=== PATIENT | female | born 1935 | race Caucasian/White ===

== ENCOUNTER 2018-01-09 19:46 | Emergency (ER) | payer MEDICARE ==
--- NOTE | 2018-01-09 19:50 | UC ---
Abdominal Pain Female HPI - HPI Summary HPI Summary: 82 yo female presents with upper abdominal pain. She tells me that 3 days ago she had an episode of severe upper abdominal pain and subsequent dry heaves. This lasted for about 12 hours. Did not eat the rest of the day. The next day she felt fine. Yesterday she had severe upper abdominal pain again with dry heaves all day - pain has been persisting all day today. She is able to tolerate water, but has not had anything to eat. She tells me that she has a history of pyloric stenosis that required dilation by GI about 5-6 years ago. Currently denies fever, chills, SOB, chest pain, constipation, or diarrhea. - History of Current Complaint Stated Complaint: SORE STOMACH,DRY HEAVES Time Seen by Provider: 01/09/18 19:50 Hx Obtained From: Patient Onset/Duration: Sudden Onset Severity Initially: Severe Severity Currently: Severe Pain Intensity: 7 Pain Scale Used: 0-10 Numeric Location: Epigastric Allergies/Adverse Reactions: Allergies Allergy/AdvReac Type Severity Reaction Status Date / Time ibuprofen Allergy Nausea Verified 01/09/18 20:05 tramadol Allergy Nausea Verified 01/09/18 20:05 PMH/Surg Hx/FS Hx/Imm Hx - Additional Past Medical History Additional PMH: Pyloric stenosis Endocrine History: Dyslipidemia GI/ History: Gastroesophageal Reflux - Surgical History Surgical History: Yes Surgery Procedure, Year, and Place: gallbladder removed, appendectomy, PYLORIC CHANNEL NARROWING AFTER CHOLECYSTECTOMY - Family History Known Family History: Positive: Diabetes - Social History Occupation: Retired Lives: With Family Alcohol Use: Occasionally Alcohol Amount: 3-4 times weekly Substance Use Type: None Smoking Status (MU): Never Smoked Tobacco Have You Smoked in the Last Year: No - Immunization History Most Recent Influenza Vaccination: 2014 Most Recent Tetanus Shot: unknown Most Recent Pneumonia Vaccination: never Review of Systems Constitutional: Negative Respiratory: Negative Cardiovascular: Negative Gastrointestinal: Abdominal Pain, Vomiting Genitourinary: Negative Neurovascular: Negative Neurological: Negative Psychological: Negative All Other Systems Reviewed And Are Negative: Yes Physical Exam - Summary Physical Exam Summary: GENERAL: NAD. WDWN. No pain distress. SKIN: No rashes, sores, lesions, or open wounds. NECK: Supple. Nontender. No lymphadenopathy. CHEST: CTAB. No r/r/w. No accessory muscle use. Breathing comfortably and in no distress. CV: RRR. Without m/r/g. Pulses intact. Brisk cap refill. ABDOMEN: Severe TTP over epigastric area. Soft. No distention or guarding. No CVA tenderness. Bowel sounds present NEURO: Alert. CN II-XII grossly intact. PSYCH: Age appropriate behavior. Triage Information Reviewed: Yes Vital Signs: Vital Signs: Temp Pulse Resp BP Pulse Ox 97.8 F 74 16 146/73 95 01/09/18 19:57 01/09/18 19:57 01/09/18 19:57 01/09/18 19:57 01/09/18 19:57 Vital Signs Reviewed: Yes Abd Pain Female Course/Dx - Course Course Of Treatment: Her history and exam is suspicious for recurrent stenosis or possible adhesions effecting upper GI pathway. I have advised her to go to the ER for further evaluation and likely CT scan. Pt was agreeable to this and will have her drive her. - Differential Dx/Diagnosis Provider Diagnoses: Epigastric pain. Vomiting Discharge - Sign-Out/Discharge Documenting (check all that apply): Patient Departure - Discharge Plan Condition: Stable Disposition: HOME-RECOMMEND TO ED Referrals: Roque Hoffmann MD [Primary Care Provider] - Additional Instructions: Please go to the ER for further evaluation of your abdominal pain and history of pyloric stenosis - Billing Disposition and Condition Condition: STABLE Disposition: Home-Recommend to ED
[2018-01-09 20:04] VITALS: BP 146/73
== END 2018-01-09 20:17 | disposition home health service (06) ==
LOC: UCEAST 19:46
DX: R10.13 Epigastric pain (principal); R11.10 Vomiting, unspecified; Z88.6 Allergy status to analgesic agent
CPT/HCPCS: 99212; G0463

== ENCOUNTER 2018-01-09 20:34 | Emergency (ER) | payer MEDICARE ==
[2018-01-09] MEDS ORDERED: NS 0.9% 1000 ML* 2,000 ML IV ONE (21:13)
[2018-01-09] MEDS ORDERED: Ondansetron INJ* 2 MG/ML VIAL IV ONE (21:13)
--- NOTE | 2018-01-09 21:16 | ED ---
Abdominal Pain/Female - HPI Summary HPI Summary: This is abner Ochoa documenting for attending Dr. Akhil Mills MD. The patient is an 82 y/o F presenting to [facility] from [facility] c/o epigastric abd pain sudden onset starting 01/06 and worsening last night. On 01/06, the patient had noticed an aching and soreness in her upper abd while she was just relaxing around the house, not doing out of the ordinary. The pain does not radiate to her chest or groin, but it is constant and rated 7/10 in severity. The pain relieved itself, and then returned the next night. She woke up yesterday without pain, but then the pain worsened last night at 22:30 and was accompanied by dry heaving. She woke up this morning without pain, but then the pain started again at 12:00 with more wretching. She was able to eat dinner yesterday, which did not worsen the pain, but she only drank water and elidia viola today without solid foods. Her flatulence has been normal. She denies diarrhea, dysuria, and hematuria. She has had a similar pain approximately 6 years ago when she had cholecystecomy complications after a surgery by Dr. Orlando. She also had an appendectomy when she was younger. She has hx of GERD. - History of Current Complaint Chief Complaint: EDAbdPain Stated Complaint: ABD PAIN Time Seen by Provider: 01/09/18 21:05 Hx Obtained From: Patient Hx Last Menstrual Period: post menopause ?: No Onset/Duration: Sudden Onset, Lasting Days - three days, Still Present, Worse Since - last night Timing: Constant Severity Initially: Mild Severity Currently: Moderate Pain Intensity: 7 Pain Scale Used: 0-10 Numeric Location: Epigastric Radiates: No Character: Other: - soreness, aching Aggravating Factor(s): Nothing Alleviating Factor(s): Nothing Associated Signs and Symptoms: Positive: Other: - POSITIVE: dry heaving; NEGATIVE: diarrhea, dysuria, hematuria Allergies/Adverse Reactions: Allergies Allergy/AdvReac Type Severity Reaction Status Date / Time ibuprofen Allergy Nausea Verified 01/09/18 20:40 tramadol Allergy Nausea Verified 01/09/18 20:40 PMH/Surg Hx/FS Hx/Imm Hx Endocrine/Hematology History: Denies: Hx Diabetes, Hx Thyroid Disease Cardiovascular History: Reports: Hx Hypercholesterolemia Denies: Hx Congestive Heart Failure, Hx Hypertension Respiratory History: Denies: Hx Asthma, Hx Chronic Obstructive Pulmonary Disease (COPD) GI History: Reports: Hx Gastroesophageal Reflux Disease Denies: Hx Ulcer History: Denies: Hx Renal Disease Sensory History: Reports: Hx Contacts or Glasses Opthamlomology History: Reports: Hx Contacts or Glasses - Surgical History Surgery Procedure, Year, and Place: gallbladder removed, appendectomy, PYLORIC CHANNEL NARROWING AFTER CHOLECYSTECTOMY Infectious Disease History: No Infectious Disease History: Reports: Hx Shingles Denies: Hx Clostridium Difficile, Hx Hepatitis, Hx Human Immunodeficiency Virus (HIV), Traveled Outside the [place] in Last 30 Days - Family History Known Family History: Positive: Diabetes - Social History Alcohol Use: Occasionally Alcohol Amount: 3-4 times weekly Hx Substance Use: No Substance Use Type: Reports: None Hx Tobacco Use: No Smoking Status (MU): Never Smoked Tobacco Have You Smoked in the Last Year: No Review of Systems Positive: Abdominal Pain - upper abd, Vomiting - dry heaving. Negative: Diarrhea Negative: dysuria, hematuria All Other Systems Reviewed And Are Negative: Yes Physical Exam - Summary Physical Exam Summary: Appearance: Well-appearing, Well-nourished, lying in bed comfortably Skin: Warm, dry, no obvious rash Eyes: sclera anicteric, no conjunctival pallor ENT: mucous membranes moist, pharynx appears normal Neck: Supple, nontender Respiratory: Clear to auscultation, no signs of respiratory distress Cardiovascular: Normal S1, S2. No murmurs. Normal distal pulses in tibial and radial bilaterally. Abdomen: Soft, tenderness to palpation in the upper abdomen without rebound or guarding, normal abd, normal active bowel sounds present Musculoskeletal: Normal, Strength/ROM Intact Neurological: A&Ox3, awake and alert, mentation is normal, speech is fluent and appropriate Psychiatric: affect is normal, does not appear anxious or depressed Triage Information Reviewed: Yes Vital Signs On Initial Exam: Initial Vitals Temp Pulse Resp BP Pulse Ox 99 F 73 16 150/78 97 01/09/18 20:40 01/09/18 20:40 01/09/18 20:40 01/09/18 20:40 01/09/18 20:40 Vital Signs Reviewed: Yes Diagnostics - Vital Signs Vital Signs Temp Pulse Resp BP Pulse Ox 01/09/18 20:40 99 F 73 16 150/78 97 - Laboratory Result Diagrams: 01/09/18 21:17 01/09/18 21:17 Lab Statement: Any lab studies that have been ordered have been reviewed, and results considered in the medical decision making process. - CT Abd/Pel CT CT Interpretation: No Acute Changes - No CT findings to correlate with patient s symptomatology. ED physician has reviewed this report. CT Interpretation Completed By: Radiologist - EKG 21:29 Cardiac Rate: NL - 74 BPM EKG Rhythm: Sinus Rhythm EKG Interpretation: NSR at 7BPM, P waves, QRS complex, and T waves are within normal limits, T - Additional Comments Diagnostic Additional Comments: EK:29, NSR at 74BPM, P waves, QRS complex, and T waves are within normal limits, T waves and intervals are normal, no ischemic changes. This is a normal EKG. Discharge - Sign-Out/Discharge Documenting (check all that apply): Patient Departure - Pt will be discharged home. - Discharge Plan Referrals: Roque Hoffmann MD [Primary Care Provider] -
[2018-01-09 21:30] LABS: ABS Basophils 0.1 10^3/ul (0-0.2); ABS Eosinophils 0.1 10^3/ul (0-0.6); ABS Monocytes 0.9 10^3/ul (0-0.8); ABS Neutrophils 5.2 10^3/ul (1.5-7.7); ABS Nucleated RBC 0 10^3/ul; Eosinophil % 1.6 % (0-6); Hematocrit 42 % (35-47); Hemoglobin 14.7 g/dl (12.0-16.0); Lymphocyte % 24.7 % (25-47); Mean Corpuscular HGB Conc 35 g/dl (31-36); Mean Corpuscular Hemoglobin 30 pg (27-31); Mean Corpuscular Volume 88 fL (80-97); Mean Platelet Volume 8.4 um3 (7.4-10.4); Nucleated Red Blood Cells % 0.2; Platelet Count 217 10^3/ul (150-450); Red Blood Count 4.83 10^6/ul (4.00-5.40); Red Cell Distribution Width 13 % (10.5-15); White Blood Count 8.3 10^3/ul (3.5-10.8)
[2018-01-09 21:51] LABS: EGFR Non-African American 80.5 (>60)
[2018-01-10] MEDS ORDERED: Iohexol 300* (CONTRAST) 10 ML SDV IV ONE (00:34)
[2018-01-10 03:03] VITALS: BP 120/63
--- NOTE | 2018-01-10 08:01 | RAD ---
INDICATION: Upper abdominal pain. History of cholecystectomy and appendectomy COMPARISON: CT November 27, 2015 TECHNIQUE: Axial source images were obtained from the hemidiaphragms to the symphysis pubis following administration of oral and intravenous contrast. 100 mL Omnipaque 300 was utilized. Coronal and sagittal reconstructed images were acquired. Lung bases: The lung bases are clear. Liver: The liver is enlarged with findings of hepatic steatosis. Is a subcentimeter left hepatic cyst. There is no ductal dilatation. Gallbladder: Cholecystectomy. Spleen: The spleen is normal in size. There are no masses. Pancreas: There is no focal pancreatic mass or ductal dilatation. Adrenal glands: There is no evidence of adrenal mass. Kidneys: The kidneys are normal in size and position. There are prompt nephrograms and there is prompt excretion bilaterally. There are no renal parenchymal masses. There is no evidence of nephrolithiasis. Adenopathy: There is no evidence of adenopathy by size criteria. Fluid collections: There are no free or localized fluid collections. Vessels:There are no significant atherosclerotic changes involving the aorta. There is no focal aneurysm. The iliac vessels are normal in caliber. The IVC appears normal. GI tract: There are no acute CT bowel findings. There is no obstruction. The stomach and small bowel appear normal. The lower GI tract is remarkable for scattered diverticula. There is no obstruction Pelvic organs: There is a suspected small uterine fibroids. The uterus and adnexa are otherwise normal Bladder: There are no bladder masses. Abdominal and pelvic soft tissues: The extraperitoneal abdominal and pelvic soft tissues appear normal.. Osseous structures: There are no acute osseous findings. Other: None IMPRESSION: 1. No acute CT findings. No mass or inflammatory changes. 2. Scattered diverticula without CT evidence of acute diverticulitis. 3. Cholecystectomy. Appendectomy. 4. Suspect small uterine fibroids
== END 2018-01-10 03:24 | disposition home or self-care (01) ==
LOC: ED 20:34
DX: R10.10 Upper abdominal pain, unspecified (principal)
CPT/HCPCS: 36415; 74177; 80053; 83690; 85025; 93005; 96374; 99283; J2405; Q9967

== ENCOUNTER 2018-01-11 05:16 | Observation (INO) | payer MEDICARE ==
[2018-01-11] MEDS ORDERED: NS 0.9% 1000 ML* 2,000 ML IV ONE (05:46)
[2018-01-11] MEDS ORDERED: Ondansetron INJ* 2 MG/ML VIAL IV ONE (05:48)
--- NOTE | 2018-01-11 05:50 | ED ---
GI/ HPI - HPI Summary HPI Summary: 82-year-old female who presents as dry heaves and abdominal pain for the past 5 days. She was seen here on the [address] normal [address] scan. She states since then pain is moved to her upper abdomen. She states she's had this pain before when she had pyloric stenosis 2 years ago. She states she's had it her pylorus widened by Dr. Orlando after she had a cholecystectomy. She states she had a normal EGD 2 years ago. She she's not been able to eat eat anything. She states she had 2 cups of water yesterday. She has not been able to eat anything in a couple days. She states at first the dry heaves and pain were intermittent but now they are constant. States she feels dehydrated. She denies any chest pain shortness of breath. She denies any flank pain. She has her normal chronic back pain. She denies pain with urination. She had some runny stool a couple days ago. She denies any constipation. No fevers. No blood in her stool. Has had appendix and gallbladder removed in the past. She has not been vomiting anything up it is just dry heaves. States last time she had this she was admitted for iv fluids and the episode resolved on its own. - History of Current Complaint Chief Complaint: EDAbdPain Time Seen by Provider: 01/11/18 05:39 Stated Complaint: ABD PAIN Hx Last Menstrual Period: post menopause Pain Intensity: 6 - Additional Pertinent History Primary Care Physician: [id number] - Allergy/Home Medications Allergies/Adverse Reactions: Allergies Allergy/AdvReac Type Severity Reaction Status Date / Time ibuprofen Allergy Nausea Verified 01/11/18 05:21 tramadol Allergy Nausea Verified 01/11/18 05:21 PMH/Surg Hx/FS Hx/Imm Hx Endocrine/Hematology History: Denies: Hx Diabetes, Hx Thyroid Disease Cardiovascular History: Reports: Hx Hypercholesterolemia Denies: Hx Congestive Heart Failure, Hx Hypertension Respiratory History: Denies: Hx Asthma, Hx Chronic Obstructive Pulmonary Disease (COPD) GI History: Reports: Hx Gastroesophageal Reflux Disease Denies: Hx Ulcer History: Denies: Hx Renal Disease Sensory History: Reports: Hx Contacts or Glasses Opthamlomology History: Reports: Hx Contacts or Glasses - Surgical History Surgery Procedure, Year, and Place: gallbladder removed, appendectomy, PYLORIC CHANNEL NARROWING AFTER CHOLECYSTECTOMY - Immunization History Immunizations Up to Date: Yes Infectious Disease History: No Infectious Disease History: Reports: Hx Shingles Denies: Hx Clostridium Difficile, Hx Hepatitis, Hx Human Immunodeficiency Virus (HIV), Traveled Outside the [place] in Last 30 Days - Family History Known Family History: Positive: Diabetes - Social History Alcohol Use: Occasionally Alcohol Amount: 3-4 times weekly Hx Substance Use: No Substance Use Type: Reports: None Hx Tobacco Use: No Smoking Status (MU): Never Smoked Tobacco Have You Smoked in the Last Year: No Review of Systems Negative: Fever Negative: Chest Pain Negative: Shortness Of Breath Positive: Abdominal Pain, Vomiting, Diarrhea, Nausea All Other Systems Reviewed And Are Negative: Yes Physical Exam Triage Information Reviewed: Yes Vital Signs On Initial Exam: Initial Vitals Temp Pulse Resp BP Pulse Ox 97.8 F 72 16 159/71 95 01/11/18 05:18 01/11/18 05:18 01/11/18 05:18 01/11/18 05:18 01/11/18 05:18 Vital Signs Reviewed: Yes Appearance: Positive: Well-Appearing Skin: Positive: Warm, Dry Head/Face: Positive: Normal Head/Face Inspection Eyes: Positive: Normal, Conjunctiva Clear ENT: Positive: Pharynx normal Respiratory/Lung Sounds: Positive: Clear to Auscultation, Breath Sounds Present Cardiovascular: Positive: Normal, RRR Abdomen Description: Positive: Soft, Other: - tenderness LUQ Bowel Sounds: Positive: Present Musculoskeletal: Positive: Normal Neurological: Positive: Normal Psychiatric: Positive: Normal Diagnostics - Vital Signs Vital Signs Temp Pulse Resp BP Pulse Ox 01/11/18 05:18 97.8 F 72 16 159/71 95 - Laboratory Result Diagrams: 01/11/18 06:00 01/11/18 06:00 Lab Statement: Any lab studies that have been ordered have been reviewed, and results considered in the medical decision making process. - Radiology abd Xray Interpretation: Positive (See Comments) - IMPRESSION: NONOBSTRUCTIVE BOWEL GAS PATTERN. ORAL CONTRAST REACHES THE RECTUM. Radiology Interpretation Completed By: Radiologist Re-Evaluation - Re-Evaluation First Eval Re-Evaluation Time: 07:22 Change: Improved Comment: feeling slightly better after fluids GIGU Course/Dx - Course Course Of Treatment: 82-year-old female who presents as dry heaves and abdominal pain for the past 5 days. She was seen here on the [address] normal [address] scan. She states since then pain is moved to her upper abdomen. She states she's had this pain before when she had pyloric stenosis 2 years ago. She states she's had it her pylorus widened by Dr. Orlando after she had a cholecystectomy. She states she had a normal EGD 2 years ago. She she's not been able to eat eat anything. She states she had 2 cups of water yesterday. States she feels dehydrated. She denies any chest pain shortness of breath. She denies any flank pain. She has her normal chronic back pain. She denies pain with urination. She had some runny stool a couple days ago. She denies any constipation. No fevers. No blood in her stool. Has had appendix and gallbladder removed in the past. She has not been vomiting anything up it is just dry heaves. States last time she had this she was admitted for iv fluids and the episode resolved on its own. On exam tenderness left upper quadrant. No rebound. with normal CT two days ago got xray today. xray normal. called GI and said unlikely to need EGD with a normal EGD 2 years ago. daughter states wants patient admitted as not able to keep anything down. spoke with dr ray who agrees to admit. - Diagnoses Differential Diagnoses - Female: Bowel Obstruction, Gastroenteritis (Viral), Urinary Tract Infection, Vomiting Provider Diagnoses: Nausea & vomiting, Abdominal pain Discharge - Sign-Out/Discharge Documenting (check all that apply): Patient Departure - Discharge Plan Condition: Good Disposition: ADMITTED TO [facility] Referrals: Roque Hoffmann MD [Primary Care Provider] - - Billing Disposition and Condition Condition: GOOD Disposition: Admitted to [facility]
[2018-01-11 06:13] LABS: ABS Basophils 0.1 10^3/ul (0-0.2); ABS Eosinophils 0.1 10^3/ul (0-0.6); ABS Lymphocytes 1.4 10^3/ul (1.0-4.8); ABS Monocytes 1.1 10^3/ul (0-0.8); ABS Neutrophils 6.7 10^3/ul (1.5-7.7); ABS Nucleated RBC 0 10^3/ul; Hematocrit 41 % (35-47); Hemoglobin 14.5 g/dl (12.0-16.0); Lymphocyte % 14.9 % (25-47); Mean Corpuscular HGB Conc 35 g/dl (31-36); Mean Corpuscular Hemoglobin 31 pg (27-31); Mean Corpuscular Volume 87 fL (80-97); Mean Platelet Volume 8.5 um3 (7.4-10.4); Nucleated Red Blood Cells % 0.1; Platelet Count 204 10^3/ul (150-450); Red Blood Count 4.73 10^6/ul (4.00-5.40); Red Cell Distribution Width 13 % (10.5-15); White Blood Count 9.3 10^3/ul (3.5-10.8)
[2018-01-11 06:34] LABS: EGFR Non-African American 81.9 (>60)
[2018-01-11] MEDS ORDERED: Pantoprazole IV* 40 MG IV ONE (07:19)
[2018-01-11] MEDS ORDERED: NS 0.9% 1000 ML* 1,000 ML IV ONE (07:34)
--- NOTE | 2018-01-11 07:55 | RAD ---
HISTORY: abd pain, dry heaves COMPARISONS: CT dated January 10, 2018 VIEWS: Frontal views of the abdomen. FINDINGS: BOWEL: There is a nonspecific bowel gas pattern, with nondilated small bowel gas noted. Vertebral contrast is noted within the colon extending to the rectum. CALCULI: There are no abnormal calculi. BONES AND SOFT TISSUES: Degenerative changes are noted of the spine. OTHER FINDINGS: The lung bases are clear. There is no subphrenic gas. IMPRESSION: NONOBSTRUCTIVE BOWEL GAS PATTERN. ORAL CONTRAST REACHES THE RECTUM. R1
[2018-01-11] MEDS ORDERED: PROCHLORPERAZINE INJ 5 MG/ML 2 ML VIAL IV PRN (09:18)
[2018-01-11] MEDS ORDERED: Ondansetron INJ* 2 MG/ML VIAL IV PRN (09:18)
[2018-01-11] MEDS ORDERED: Morphine INJ* 2 MG/ML 1 ML SYRINGE (TWO MG - NEW SYRINGE VERSION) IV PRN (09:18)
[2018-01-11 09:41] LABS: Urine Appearance Clear; Urine Blood Negative (Negative); Urine Color Colorless; Urine Ketones 1+ (Negative); Urine Protein Negative (Negative); Urine Specific Gravity 1.003 (1.010-1.030); Urine Urobilinogen Negative (Negative)
[2018-01-11] MEDS: Acetaminophen TAB* 325 MG PO PRN ×3 (10:46→23:40)
--- NOTE | 2018-01-11 17:15 | HP ---
CC: Dr. Roque Hoffmann * HISTORY AND PHYSICAL: DATE OF ADMISSION: 01/11/18 PRIMARY CARE PROVIDER: Dr. Roque Hoffmann. CHIEF COMPLAINT: Abdominal pain, nausea, vomiting. HISTORY OF PRESENT ILLNESS: Ms. Echols is an 82-year-old female who has a history of pyloric stenosis following cholecystectomy surgery that required dilation approximately 6 years ago who presents to the emergency room with complaints of abdominal pain, nausea, and vomiting. The patient states that this past Thursday night, she began to have upper abdominal discomfort. This is similar to what she experienced approximately 2 years ago and therefore presented to the emergency room where reportedly nothing was found to be abnormal and she was sent home. The patient had a persistent stomach ache and dry heaves through the weekend and could not keep anything down. Because of this, she presented to the emergency room today. The patient denies any fevers or chills. She does state that she is feeling somewhat better in the emergency room after receiving IV fluids and IV Protonix. PAST MEDICAL HISTORY: 1. History of pyloric stenosis. 2. Hyperlipidemia. PAST SURGICAL HISTORY: 1. Cholecystectomy. 2. Appendectomy. MEDICATIONS: 1. Crestor 5 mg p.o. daily. 2. Omeprazole 20 mg p.o. daily p.r.n. indigestion. 3. Multivitamin 1 tab p.o. daily. 4. Glucosamine/chondroitin 1 tab p.o. daily. 5. Vitamin D 1000 units p.o. daily. 6. Tylenol 650 mg p.o. q.4 hours p.r.n. pain. ALLERGIES: TRAMADOL. FAMILY HISTORY: Mom of complications related to diabetes. Dad of AAA. SOCIAL HISTORY: The patient is a nonsmoker. She does admit to drinking 3 to 4 alcoholic beverages per week. 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 She is not . She has 4 children. She indicates that her daughter, Gayatri Potter, TELEPHONE CLERK, will be her health care proxy. REVIEW OF SYSTEMS: A complete 11-system review of systems is obtained. Pertinent positives and negatives are as per HPI and in addition, the patient does state that she had 2 looser stools yesterday than her baseline, but otherwise the review of systems is negative. PHYSICAL EXAMINATION GENERAL: The patient is a well-developed, elderly female, who appears much younger than her stated age, lying in bed, in no acute distress. VITAL SIGNS: Blood pressure 149/69, pulse 78, respirations 18, temp 98.4, O2 sat 98% on room air. HEENT: Pupils are equal and round. Extraocular muscles are intact. Oropharynx is clear. Oral mucosa is moist. There is no submandibular, cervical , or supraclavicular adenopathy. Thyroid is not enlarged. No thyroid nodules noted. PULMONARY: Lungs are clear to auscultation bilaterally. CARDIAC: Normal S1 and S2. Regular rate and rhythm. I do not appreciate any murmurs. ABDOMEN: Bowel sounds are present. Abdomen is soft and nondistended. She is minimally tender in the upper abdomen. MUSCULOSKELETAL: There is no cyanosis or clubbing of the digits. There is full active range of all 4 extremities. NEUROLOGIC: Cranial nerves II through XII grossly intact. Sensation is intact to light touch throughout. Strength is 5/5 and symmetric to both upper and lower extremities bilaterally. PSYCH: The patient is alert. She is oriented x3. Affect appears appropriate. SKIN: Warm and dry. There are no rashes. DIAGNOSTIC STUDIES/LAB DATA: WBC 9.3, hemoglobin 14.5, hematocrit 41, and platelets 204. Sodium 134, potassium 4.1, chloride 100, CO2 of 26, BUN 7, creatinine 0.69, glucose 117, lactic acid 0.8, calcium 9.1. Bilirubin 0.9, AST 14, ALT 18, alk phos 69. CRP 25.35, albumin 4.1, lipase 23. Urinalysis reveals specific gravity of 1.003 and otherwise negative for signs of infection. Abdominal x-ray, nonobstructive bowel gas pattern. Oral contrast reaches the rectum from prior CT scan. ASSESSMENT AND PLAN: Ms. Echols is an 82-year-old female with a past history of pyloric stenosis that required dilation who presents to the emergency room with complaints of upper abdominal pain and dry heaves with inability to keep anything down. 1. Abdominal pain, nausea, vomiting. The etiology of this is not completely clear. The patient has already started feeling better with improved hydration. The patient has yet to try eating anything as over the weekend she would dry heaves as soon as she tried. The patient will be admitted and continue on IV fluid hydration. She will have antiemetics available. She will be started on a clear liquid diet, which will slowly be advanced as tolerated. At this point , I do not feel that she needs any further imaging. The ER provider did speak with the wheelchair van operator first responder chief informatics officer who did not feel that if her EGD 2 years ago when she had the same symptoms was normal that she would likely have developed stenosis in the time since. The patient will be monitored for the ability to tolerate a diet. If she is unable to tolerate the diet, GI consultation will be requested. 2. Hyperlipidemia. At this point, I am going to hold the patient's Crestor. This will be resumed upon discharge. 3. DVT prophylaxis: According to the Adult Thrombosis Prophylaxis Risk Factor Assessment Guide, the patient has a total risk factor score of 4, making her highest risk. She will be placed on Lovenox 40 mg subcutaneous daily. 4. Code status is full. TIME SPENT: Sixty-five minutes was spent admitting this patient. [id number]/CPS #: [id number] [facility]
[2018-01-11] MEDS: NS 0.9% 1000 ML* 1,000 ML IV SCH (20:49)
[2018-01-11] MEDS: Enoxaparin(*) 40 MG/0.4 ML SYR SUBCUT SCH (21:46)
[2018-01-12] MEDS: NS 0.9% 1000 ML* 1,000 ML IV SCH (08:43)
[2018-01-12] MEDS: Pantoprazole IV* 40 MG IV SCH (09:20)
--- NOTE | 2018-01-12 17:47 | PN ---
Subjective Date of Service: 01/12/18 Interval History: Patient seen and examined early this am, no complaints at that time. However patient states she began having diarrhea after she woke up, explosive in nature that subsided at around noon. No abdominal pain, no n/v since last night, tolerating CLD today, no fever or chills. Objective Active Medications: Acetaminophen (Tylenol Tab*) 650 mg PO Q4H PRN PRN Reason: FEVER/PAIN Last Admin: 01/11/18 23:40 Dose: 650 mg Enoxaparin Sodium (Lovenox(*)) 40 mg SUBCUT Q24H [facility] Last Admin: 01/11/18 21:46 Dose: 40 mg Sodium Chloride (Ns 0.9% 1000 Ml*) 1,000 mls @ 100 mls/hr IV PER RATE [facility] Last Admin: 01/12/18 08:43 Dose: 100 mls/hr Morphine Sulfate (Morphine Inj ((Syringe))*) 2 mg IV Q4H PRN PRN Reason: PAIN - MILD Ondansetron HCl (Zofran Inj*) 4 mg IV Q6H PRN PRN Reason: NAUSEA Pantoprazole Sodium (Protonix Iv*) 40 mg IV DAILY [facility] Last Admin: 01/12/18 09:20 Dose: 40 mg Prochlorperazine Edisylate (Compazine Inj*) 10 mg IV Q6H PRN PRN Reason: NAUSEA/VOMITING Vital Signs - 8 hr 01/12/18 01/12/18 11:29 15:22 Temperature 98.2 F 98.7 F Pulse Rate 58 61 Respiratory 16 16 Rate Blood Pressure 119/58 119/54 (mmHg) O2 Sat by Pulse 98 96 Oximetry Oxygen Devices in Use Now: None Appearance: alert, well appearing, NAD Eyes: PERRLA Ears/Nose/Mouth/Throat: Clear Oropharnyx Neck: Trachea Midline Respiratory: Symmetrical Chest Expansion and Respiratory Effort, Clear to Auscultation Cardiovascular: NL Sounds; No Murmurs; No JVD, RRR Abdominal: NL Sounds; No Tenderness; No Distention, No Hepatosplenomegaly Extremities: No Edema Skin: No Rash or Ulcers Neurological: Alert and Oriented x 3, NL Sensation Nutrition: - - clears Result Diagrams: 01/11/18 06:00 01/11/18 06:00 Assess/Plan/Problems-Billing Assessment: This is an 82 year old female with hx of pyloric stenosis, s/p dilatation; that presented to ED with n/v and dry heaving and inability to tolerate any PO intake. Currently progressing. - Patient Problems (1) Nausea & vomiting Code(s): R11.2 - NAUSEA WITH VOMITING, UNSPECIFIED SNOMED Code(s): 30835170 Comment: - Had last EGD in 2016 - Flat plate ABD shows no obstruction - Tolerating clears, no vomiting - Advance diet - DC IVF (2) Diarrhea Code(s): R19.7 - DIARRHEA, UNSPECIFIED SNOMED Code(s): 38670421 Comment: - Seems to be self-limiting - may be viral, will culture stool if she has further BM, but has had none so far - No fever or leukocytosis, less inclined to believe this is bacterial (3) GERD (gastroesophageal reflux disease) Code(s): K21.9 - GASTRO-ESOPHAGEAL REFLUX DISEASE WITHOUT ESOPHAGITIS SNOMED Code(s): 528871397 Comment: - Daughter states patient has been off her protonix and had dietary indescretion for a few days - Continue protinix IV and DC on PO - Advance to soft diet (4) Hyperlipemia Code(s): E78.5 - HYPERLIPIDEMIA, UNSPECIFIED SNOMED Code(s): 43168438 Comment: - Stable on statin (5) DVT prophylaxis Code(s): VTV3376 - SNOMED Code(s): 859324796 Comment: - lovenox sq (6) Full code status Current Visit: No Status: Chronic Code(s): Z78.9 - OTHER SPECIFIED HEALTH STATUS SNOMED Code(s): 392179627 Status and Disposition: advance diet slowly, if tolerates, may DC in AM on protonix with PCP and GI outpatient f/u
[2018-01-12] MEDS: Enoxaparin(*) 40 MG/0.4 ML SYR SUBCUT SCH (22:34)
[2018-01-13] MEDS: Pantoprazole IV* 40 MG IV SCH (09:41)
[2018-01-13 11:27] VITALS: BP 113/50
--- NOTE | 2018-01-13 14:17 | DCNOTE ---
Subjective Date of Service: 01/13/18 Interval History: Pt reports she would like to go home. She is feeling much better today and has not had any diarrhea. No abdominal pain. She is tolerating her diet. no fevers/ chills. Objective Active Medications: Acetaminophen (Tylenol Tab*) 650 mg PO Q4H PRN PRN Reason: FEVER/PAIN Last Admin: 01/11/18 23:40 Dose: 650 mg Enoxaparin Sodium (Lovenox(*)) 40 mg SUBCUT Q24H [facility] Last Admin: 01/12/18 22:34 Dose: 40 mg Morphine Sulfate (Morphine Inj ((Syringe))*) 2 mg IV Q4H PRN PRN Reason: PAIN - MILD Ondansetron HCl (Zofran Inj*) 4 mg IV Q6H PRN PRN Reason: NAUSEA Pantoprazole Sodium (Protonix Iv*) 40 mg IV DAILY [facility] Last Admin: 01/13/18 09:41 Dose: 40 mg Prochlorperazine Edisylate (Compazine Inj*) 10 mg IV Q6H PRN PRN Reason: NAUSEA/VOMITING Vital Signs - 8 hr 01/13/18 01/13/18 01/13/18 07:16 10:00 11:05 Temperature 98.1 F 98.0 F Pulse Rate 63 75 Respiratory 18 18 18 Rate Blood Pressure 137/52 113/50 (mmHg) O2 Sat by Pulse 96 95 Oximetry Oxygen Devices in Use Now: None Appearance: 82 yo well developed femle sitting up in bed in NAD. A+O x3 Eyes: No Scleral Icterus, PERRLA Ears/Nose/Mouth/Throat: NL Teeth, Lips, Gums, Mucous Membranes Moist Respiratory: Symmetrical Chest Expansion and Respiratory Effort, Clear to Auscultation Cardiovascular: NL Sounds; No Murmurs; No JVD, RRR, No Edema Abdominal: NL Sounds; No Tenderness; No Distention Extremities: No Edema, No Clubbing, Cyanosis Skin: No Rash or Ulcers, No Nodules or Sclerosis Neurological: Alert and Oriented x 3, NL Sensation, NL Gait, NL Muscle Strength and Tone Lines/Tubes/Other Access: Clean, Dry and Intact Peripheral IV Nutrition: Taking PO's Result Diagrams: 01/11/18 06:00 01/11/18 06:00 Microbiology and Other Data: Microbiology 01/12/18 22:39 Stool Gross Appearance - Final Stool Assess/Plan/Problems-Billing Assessment: This is an 82 year old female with hx of pyloric stenosis, s/p dilatation; that presented to ED with n/v and dry heaving and inability to tolerate any PO intake. Currently progressing. - Patient Problems (1) Diarrhea Comment: -resolved - Susoect viral gastroenteritis - No fever or leukocytosis, less inclined to believe this is bacterial (2) Nausea & vomiting Comment: - Had last EGD in 2015 - Flat plate ABD shows no obstruction - Tolerating soft diet - Advance diet - DC IVF (3) GERD (gastroesophageal reflux disease) Comment: - restart PPI on DC (4) Hyperlipemia Comment: - Stable on statin (5) DVT prophylaxis Comment: - lovenox sq (6) Full code status Status and Disposition: plan for DC to home today
--- NOTE | 2018-01-15 22:03 | DS ---
CC: Dr. Hoffmann * DISCHARGE SUMMARY: DATE OF ADMISSION: 01/11/18 DATE OF DISCHARGE: 01/13/18. PROVIDER: Lina Hyatt NP ATTENDING PHYSICIAN: Lilian Singh DO * (report dictated by Lina Hyatt NP). PRIMARY CARE PROVIDER: Dr. Hoffmann DISCHARGE DIAGNOSES: Diarrhea, nausea, vomiting thought to be secondary to viral gastroenteritis. SECONDARY DIAGNOSES: 1. History of pyloric stenosis. 2. Hyperlipidemia. HISTORY OF PRESENT ILLNESS AND HOSPITAL COURSE: Ms. Echols is a well-developed , 82- year-old female who presented to the emergency department on 01/11/18, with abdominal pain, nausea, and vomiting that started 2 days ago, which initially started with upper abdominal discomfort and then through the weekend, she did not keep anything down. Because of this, she presented to the emergency department. She was admitted to the hospitalist service. In the emergency department, she underwent an abdominal x-ray, which showed a nonobstructive bowel gas pattern. It is noted she underwent a CT scan on , which showed no acute CT findings. Her labs on admission were unremarkable with a mildly elevated CRP of 25. She had no noted fever and remained hemodynamically stable. Throughout her hospitalization, she improved daily and was initially started on clear liquid diet and is up to a full soft diet, tolerating it well. Most likely, this was secondary to a viral gastroenteritis. Stool cultures were sent, which are still pending at the time of dictation. Today on evaluation, the patient is wanting to go home. She is reporting that she is doing well and has no further abdominal pain, nausea, vomiting, or has had no further diarrhea today. DISCHARGE MEDICATIONS: 1. Crestor 5 mg p.o. daily. 2. Omeprazole 20 mg p.o. 3. Multivitamin with mineral 1 tab p.o. daily. 4. Glucosamine/chondroitin 1 chew p.o. daily. 5. Vitamin D3 1000 units p.o. daily. 6. Acetaminophen 650 mg p.o. q. 4 hours p.r.n. DISCHARGE PLAN: 1. Follow up with Dr. Hoffmann, primary care provider within 1 to 7 days. 2. The patient was instructed to return to the emergency department with any concerning or worsening symptoms. 3. I did discuss with the patient she could start a probiotic. TIME SPENT: Approximately 60 minutes were spent on this discharge. LINA HYATT, [employer] [id number]/[facility] #: [id number] [facility] CENTERJames
== END 2018-01-13 14:50 | disposition home or self-care (01) ==
LOC: ED 05:16 → MED 09:18
PROVIDERS: ADMIT Hospitalist; ATTEND Hospitalist
DX: R10.9 Unspecified abdominal pain (principal); R11.2 Nausea with vomiting, unspecified; Z90.49 Acquired absence of other specified parts of digestive tract; Z88.6 Allergy status to analgesic agent; Z79.899 Other long term (current) drug therapy; R19.7 Diarrhea, unspecified; K21.9 Gastro-esophageal reflux disease without esophagitis; E78.5 Hyperlipidemia, unspecified
CPT/HCPCS: 36415; 74018; 80053; 81003; 83605; 83690; 85025; 86140; 87045; 87046; 87077; 87899; 99285; A9270-GY; G0378; J1650; J2405

== ENCOUNTER 2018-09-14 11:59 | Emergency (ER) | payer MEDICARE ==
[2018-09-14 12:16] VITALS: BP 136/63
--- NOTE | 2018-09-14 13:19 | UC ---
Head Injury HPI - HPI Summary HPI Summary: 82 y/o female presents to the urgent care c/o fell while going into [employer] office arrives with bruised area on left face and chest - History Of Current Complaint Chief Complaint: UCTrauma Stated Complaint: FACIAL/RIB INJURY Time Seen by Provider: 09/14/18 13:17 Hx Obtained From: Patient Hx Last Menstrual Period: post menopause ?: No Onset/Duration: Sudden Onset Pain Intensity: 7 - Allergies/Home Medications Allergies/Adverse Reactions: Allergies Allergy/AdvReac Type Severity Reaction Status Date / Time ibuprofen Allergy Nausea Verified 09/14/18 12:16 tramadol Allergy Nausea Verified 09/14/18 12:16 PMH/Surg Hx/FS Hx/Imm Hx - Surgical History Surgical History: Yes Surgery Procedure, Year, and Place: gallbladder removed, appendectomy, [facility] NARROW[facility] AFTER CHOLECYSTECTOMY - Family History Known Family History: Positive: Diabetes - Social History Alcohol Use: Occasionally Alcohol Amount: 3-4 times weekly Substance Use Type: None Smoking Status (MU): Never Smoked Tobacco Have You Smoked in the Last Year: No - Immunization History Most Recent Influenza Vaccination: 2014 Most Recent Tetanus Shot: unknown Most Recent Pneumonia Vaccination: never Physical Exam - Summary Physical Exam Summary: Vital signs: reviewed General: weel developed, well nourished old female awake and alert in no pain or respiratory distress; no odor of ETOH. Skin: [place], warm and dry, no surface trauma. HEENT: -Head: atraumatic, no palpable deformities, [place] flat (if still open) -Eyes: PERRLA and EOMI, no periorbital ecchymosis. -Ears: TMs clear, no hemotympanum or Battles sign. -Nose/Face: atraumatic, no septal hematoma. Facial bones symmetric, Positive soft tissue swelling and bruise above the left eyebrow, tender to palaption and stable with attempt at manipulation. -Mouth/Throat: no intraoral trauma, Teeth and mandible are intact. Neck: no point tenderness, step-off or deformity to firm palpation of the cervical spine at the midline. No spasm or paraspinal muscle tenderness. Trachea midline. Carotids equal. No masses. FROM without limitation or pain. Chest: no surface trauma or asymmetry. left side ribs 8-12 tender to palpation without crepitus or deformity. CTA bilaterally. Heart: RRR, no murmur, rub, or gallop. All peripheral pulses are intact and equal. Abd: nondistended without abrasions or ecchymosis. Bowel sounds are active. NT, guarding or rebound. No masses. Good femoral pulses. Back: no contusions, ecchymosis, or abrasions are noted, NT, without step-off or deformity to firm palpation of the thoracic and lumbar spine. Pelvis: NT to palpation and stable to compression. : Normal external genitalia, no blood at the meatus (if applicable) Rectal: Normal tone. No rectal wall tenderness or mass. Stool is brown and heme negative (if applicable) Extrems: no surface trauma. FROM. Distal motor, neuromuscular supply is intact. Neuro: A&O x4, GCS 15, CN II-XII grossly intact. Motor and sensory exam nonfocal. Reflexes are symmetric. Speech is clear and gait steady. Triage Information Reviewed: Yes Vital Signs: Initial Vital Signs Temp 96.7 F 09/14/18 12:12 Pulse 74 09/14/18 12:12 Resp 16 09/14/18 12:12 BP 136/63 09/14/18 12:12 Pulse Ox 100 09/14/18 12:12 Head Injury Course/Dx - Differential Dx/Diagnosis Differential Diagnosis/HQI/PQRI: Cerebral Contusion, Concussion Without LOC, Contusion, Hematoma, Intracranial Bleed, Orbital Fracture, Skull Fracture, Other - let side rib fraction, rib contusion, hematoma, pneumothorax, Provider Diagnosis: Contusion of rib on left side, Facial contusion Discharge - Sign-Out/Discharge Documenting (check all that apply): Patient Departure - D/c home All imaging exams completed and their final reports reviewed: Yes - Discharge Plan Condition: Stable Disposition: HOME Patient Education Materials: Rib Contusion (ED), Facial Contusion (ED) Referrals: Roque Hoffmann MD [Primary Care Provider] - 2 Days Additional Instructions: 1-Please continue taking Tylenol PO q6-8hrs prn as instructed after meals to alleviate pain and swelling. Increase fluid intake, eat well, rest and avoid strenuous exercise. Apply ICE to decrease swelling 2- Rest your brain, avoid watching videos or movies or work in the computer for long period or time. If you develop YOON, dizziness, Nausea and vomiting or visual disturbances please go immediately to the ER for further evaluation and treatment. 3-Please use the Incentive Spirometry as the Nurse explained to improve lung function and avoid Atelectasis 4-If symptoms do not improve or worsen please f/u w/ your PCP in 3 days for further evaluation and treatment on your Contusion - Billing Disposition and Condition Condition: STABLE Disposition: Home
[2018-09-14] MEDS ORDERED: Acetaminophen TAB* 325 MG PO ONE (13:29)
== END 2018-09-14 15:00 | disposition home or self-care (01) ==
LOC: UCEAST 11:59
DX: S20.212A Contusion of left front wall of thorax, initial encounter (principal); S00.83XA Contusion of other part of head, initial encounter; W19.XXXA Unspecified fall, initial encounter; Y93.01 Activity, walking, marching and hiking; Y92.89 Other specified places as the place of occurrence of the external cause
CPT/HCPCS: 70450; 99212; A9270-GY; G0463

== ENCOUNTER 2024-03-01 21:42 | Inpatient (IN) ==
[2024-03-01] MEDS: Ondansetron ODT 4 mg TAB 4 MG TAB PO ONE (23:33)
[2024-03-02 07:10] LABS: ABS Basophils 0.1 10^3/uL (0.0-0.1); ABS Lymphocytes 2.1 10^3/uL (1.0-4.8); ABS Neutrophils 8.1 10^3/uL (1.5-7.6); Eosinophil % 0.3 %; Hematocrit 39.4 % (35-45); Hemoglobin 13.8 g/dL (11.5-14.3); Lymphocyte % 18.6 %; Mean Corpuscular Hemoglobin 30.7 pg (27-33); Mean Corpuscular Volume 87.5 fL (80-97); Mean Platelet Volume 8.3 fL (7.5-11.2); Platelet Count 240 10^3/uL (150-450); Red Cell Distribution Width 12.7 % (12-17); White Blood Count 11.5 10^3/uL (3.8-11.8)
[2024-03-02 07:43] LABS: Albumin 4.1 g/dL (3.2-5.2); Albumin/Globulin Ratio 1.7 (1-3); Calcium 8.9 mg/dL (8.6-10.3); Creatinine, Serum 0.91 mg/dL (0.51-0.95); Globulin 2.4 g/dL (2-4); Potassium 4.3 mmol/L (3.5-5.0); Total Bilirubin 0.5 mg/dL (0.2-1.0); Total Protein 6.5 g/dL (6.4-8.9); eGFR CKD-EPI 61.4 (>60)
[2024-03-02] MEDS: Enoxaparin 40 MG/0.4 ML SYR SUBCUT SCH (12:05)
[2024-03-02] MEDS: HYDROmorphone 0.5 MG/0.5 ML SYRINGE IV SLOW PU PRN (15:08)
[2024-03-03 07:01] LABS: ABS Basophils 0.1 10^3/uL (0.0-0.1); ABS Eosinophils 0.2 10^3/uL (0.0-0.5); ABS Lymphocytes 2.3 10^3/uL (1.0-4.8); ABS Monocytes 1.3 10^3/uL (0.0-0.9); ABS Neutrophils 4.9 10^3/uL (1.5-7.6); Hematocrit 37.3 % (35-45); Hemoglobin 13.1 g/dL (11.5-14.3); Lymphocyte % 26.2 %; Mean Corpuscular Hemoglobin 30.9 pg (27-33); Mean Corpuscular Volume 88.4 fL (80-97); Mean Platelet Volume 8.3 fL (7.5-11.2); Platelet Count 217 10^3/uL (150-450); Red Blood Count 4.22 10^6/uL (3.63-4.92); Red Cell Distribution Width 12.5 % (12-17); White Blood Count 8.8 10^3/uL (3.8-11.8)
[2024-03-03 07:14] LABS: Calcium 8.2 mg/dL (8.6-10.3); Creatinine, Serum 0.81 mg/dL (0.51-0.95); Potassium 4.1 mmol/L (3.5-5.0); eGFR CKD-EPI 70.7 (>60)
[2024-03-04 05:34] LABS: ABS Basophils 0.1 10^3/uL (0.0-0.1); ABS Eosinophils 0.1 10^3/uL (0.0-0.5); ABS Lymphocytes 1.9 10^3/uL (1.0-4.8); ABS Monocytes 1.3 10^3/uL (0.0-0.9); ABS Neutrophils 5.5 10^3/uL (1.5-7.6); Eosinophil % 1.6 %; Hematocrit 37.2 % (35-45); Lymphocyte % 21.2 %; Mean Corpuscular Hemoglobin 31.1 pg (27-33); Mean Corpuscular Hgb Conc 34.9 g/dL (31-36); Mean Corpuscular Volume 88.9 fL (80-97); Mean Platelet Volume 8.4 fL (7.5-11.2); Platelet Count 211 10^3/uL (150-450); Red Blood Count 4.18 10^6/uL (3.63-4.92); Red Cell Distribution Width 12.6 % (12-17)
[2024-03-04 06:11] LABS: Calcium 8.7 mg/dL (8.6-10.3); Creatinine, Serum 0.92 mg/dL (0.51-0.95); Potassium 4.3 mmol/L (3.5-5.0); eGFR CKD-EPI 60.6 (>60)
[2024-03-04] MEDS: Senna TAB 8.6 mg TAB PO PRN (09:20)
[2024-03-04] MEDS: Polyethylene Glycol 3350 17 GM PACKET PO PRN (09:20)
[2024-03-04] MEDS: Lidocaine PATCH 5% PATCH TRANSDERM SCH (09:37)
[2024-03-04] MEDS: Magnesium Hydroxide LIQ 30 ML UDC PO SCH (13:27)
[2024-03-05] MEDS ORDERED: Naloxone 0.4 mg VIAL 0.4 mg/ml 1 ml VIAL IV PUSH PRN (07:13)
[2024-03-08 06:32] LABS: Hematocrit 36.2 % (35-45); Hemoglobin 12.7 g/dL (11.5-14.3); Mean Corpuscular Hemoglobin 31.2 pg (27-33); Mean Corpuscular Hgb Conc 35.1 g/dL (31-36); Mean Corpuscular Volume 88.9 fL (80-97); Mean Platelet Volume 8.1 fL (7.5-11.2); Platelet Count 262 10^3/uL (150-450); Red Blood Count 4.07 10^6/uL (3.63-4.92); Red Cell Distribution Width 12.8 % (12-17); White Blood Count 7.5 10^3/uL (3.8-11.8)
[2024-03-09 05:23] VITALS: BP 123/62
== END 2024-03-09 09:51 | DRG 563 ==
LOC: ED 21:42 → EDHOLD 21:42 → SUATTDRO 03-02 10:49 → SSU 03-02 12:26 → SUATTDRO 03-04 12:38 → SSU 03-04 12:38
PROVIDERS: ADMIT Hospitalist; ATTEND Internal Medicine

== ENCOUNTER 2024-03-08 12:47 | Inpatient (IN) ==
[2024-03-09] MEDS ORDERED: Polyethylene Glycol 3350 17 GM PACKET PO PRN (11:21)
[2024-03-09] MEDS: Enoxaparin 40 MG/0.4 ML SYR SUBCUT SCH (12:35)
[2024-03-09] MEDS: Senna TAB 8.6 mg TAB PO PRN (22:02)
[2024-03-10] MEDS ORDERED: Influenza Vaccine *TRI* 2024-25* 0.5 ML SYRINGE IM ONE (09:00)
[2024-03-10] MEDS: Cholecalciferol (VIT D3) 1,000 unit TAB PO SCH (09:33)
[2024-03-10] MEDS: COVID VAC 24-25 (12+) (Moderna) Syringe 0.5 mL IM ONE (20:00)
[2024-03-11 07:24] LABS: ABS Basophils 0.1 10^3/uL (0.0-0.1); ABS Eosinophils 0.2 10^3/uL (0.0-0.5); ABS Lymphocytes 1.6 10^3/uL (1.0-4.8); ABS Neutrophils 3.9 10^3/uL (1.5-7.6); Eosinophil % 3.6 %; Hematocrit 35.3 % (35-45); Lymphocyte % 23.6 %; Mean Corpuscular Hemoglobin 30.3 pg (27-33); Mean Corpuscular Hgb Conc 34.1 g/dL (31-36); Mean Corpuscular Volume 88.8 fL (80-97); Mean Platelet Volume 8.1 fL (7.5-11.2); Platelet Count 291 10^3/uL (150-450); Red Blood Count 3.97 10^6/uL (3.63-4.92); Red Cell Distribution Width 12.6 % (12-17); White Blood Count 6.8 10^3/uL (3.8-11.8)
[2024-03-11 07:41] LABS: Albumin 3.4 g/dL (3.2-5.2); Albumin/Globulin Ratio 1.6 (1-3); Calcium 8.5 mg/dL (8.6-10.3); Creatinine, Serum 0.72 mg/dL (0.51-0.95); Globulin 2.1 g/dL (2-4); Potassium 4.4 mmol/L (3.5-5.0); Total Bilirubin 0.5 mg/dL (0.2-1.0); Total Protein 5.5 g/dL (6.4-8.9); eGFR CKD-EPI 81.4 (>60)
[2024-03-11] MEDS: Lidocaine PATCH 5% PATCH ONE (14:23)
[2024-03-11] MEDS: Lidocaine PATCH 5% PATCH TRANSDERM SCH (14:31)
[2024-03-12] MEDS: Lidocaine PATCH 5% PATCH TRANSDERM SCH (07:51)
[2024-03-12] MEDS: Acetaminop/Codeine 300mg/30mg TAB PO PRN (08:40)
[2024-03-12] MEDS: Influenza Vaccine *TRI* 2024-25* 0.5 ML SYRINGE IM ONE (09:58)
[2024-03-13] MEDS: Magnesium Hydroxide LIQ 30 ML UDC PO PRN (08:15)
[2024-03-15 06:40] VITALS: BP 119/55
== END 2024-03-15 14:50 | disposition home or self-care (01) | DRG 561 ==
LOC: PMRU 03-09 10:06
PROVIDERS: ADMIT Physical Medicine & Rehabilitation; ATTEND Physical Medicine & Rehabilitation